=== PATIENT | male | born 1975 | race Caucasian/White ===

== ENCOUNTER 2022-10-06 09:47 | Emergency (ER) | payer SELFPAY ==
[~2022-10-06] VITALS: Ht 160 cm; Wt 65.8 kg
[2022-10-06 09:50] VITALS: BP_SYST 143
[2022-10-06] MEDS ORDERED: METF-379 PO (10:34)
== END 2022-10-06 10:49 ==
LOC: SED 09:47
DX: E11.65 Type 2 diabetes mellitus with hyperglycemia (principal); R73.9 Hyperglycemia, unspecified; Z79.899 Other long term (current) drug therapy
CPT/HCPCS: 99283